=== PATIENT | female | born 2000 | race Caucasian/White ===

== ENCOUNTER 2023-09-10 12:40 | Emergency (ER) | payer MEDICAID ==
[~2023-09-10] VITALS: Ht 167.6 cm; Wt 79.4 kg
[2023-09-10 13:40] LABS: BASOPHILS % (AUTO) 0.5 % (0.0-2.0); EOSINOPHILS % (AUTO) 0.2 % (0.0-6.0); HEMATOCRIT 36 % (33-45); HEMOGLOBIN 12.1 g/dL (11.5-14.8); LYMPHOCYTES # (AUTO) 1.3 K/uL (0.8-4.8); LYMPHOCYTES % (AUTO) 23.3 % (20.0-44.0); MEAN CORPUSCULAR HEMOGLOBIN 28 PG (26.0-33.0); MEAN CORPUSCULAR HGB CONC 33 g/dl (31.0-36.0); MEAN CORPUSCULAR VOLUME 83 fL (82-100); MONOCYTES # (AUTO) 0.3 K/uL (0.1-1.30); MONOCYTES % (AUTO) 5.2 % (2.0-12.0); NEUTROPHILS # (AUTO) 4.1 K/uL (1.8-8.9); NEUTROPHILS % (AUTO) 70.8 % (43.0-81.0); PLATELET COUNT (AUTO) 353 K/uL (150-450); RED BLOOD CELL COUNT(AUTO) 4.37 MIL/uL (4.0-5.2); RED CELL DISTRIBUTION WIDTH 14.6 % (11.5-15.0); WHITE BLOOD COUNT (AUTO) 5.8 K/uL (4.3-11.0)
[2023-09-10 13:48] LABS: PREGNANCY TEST URINE QUAL NEGATIVE (NEGATIVE)
[2023-09-10 13:48] LABS: CALCIUM, SERUM 8.7 mg/dL (8.5-10.1); CARBON DIOXIDE 23 mmol/L (21-32); CHLORIDE 107 mmol/L (98-107); CREATININE 0.6 mg/dL (0.6-1.3); GLUCOSE 99 mg/dL (74-106); POTASSIUM 3.7 mmol/L (3.5-5.1); SODIUM SERUM 137 mmol/L (136-145); UREA NITROGEN, BLOOD 7 mg/dL (7-18)
[2023-09-10 13:54] LABS: ALANINE AMINOTRANSFERASE 48 U/L (12-78); ALBUMIN 3.3 g/dL (3.4-5.0); ALCOHOL, BLOOD < 3 mg/dL (0-10); ALKALINE PHOSPHATASE 77 U/L (46-116); ASPARTATE AMINOTRANSFERASE 27 U/L (15-37); BILIRUBIN,DIRECT 0.1 mg/dL (0.0-0.2); BILIRUBIN,TOTAL 0.3 mg/dL (0.2-1.0); TOTAL PROTEIN, SERUM 7.4 g/dL (6.4-8.2)
[2023-09-10 13:55] LABS: AMPHETAMINE, URINE NEGATIVE (NEGATIVE); BARBITURATE, URINE NEGATIVE (NEGATIVE); BENZODIAZEPINE, URINE NEGATIVE (NEGATIVE); CANNABINOID, URINE NEGATIVE (NEGATIVE); COCCAINE, URINE NEGATIVE (NEGATIVE); OPIATE, URINE NEGATIVE (NEGATIVE); PHENCYCLIDINE SCREEN,URINE NEGATIVE (NEGATIVE)
[2023-09-10] MEDS: IV NS 0.9% 1,000 ML BAG IV ONE (14:25)
[2023-09-10] MEDS: LEVETIRACETAM (500MG) 1,000 MG in IV NS 0.9% 90 ML IV SCH (14:46)
[2023-09-10] MEDS ORDERED: LEVE500T9 PO (14:56)
[2023-09-10 15:43] VITALS: BP 131/74; TEMP 98; O2SAT 100
== END 2023-09-10 15:45 | disposition home or self-care (01) ==
LOC: ER 12:47
DX: G40.909 Epilepsy, unspecified, not intractable, without status epilepticus (principal); R55 Syncope and collapse; M25.569 Pain in unspecified knee; Z85.3 Personal history of malignant neoplasm of breast; Z88.6 Allergy status to analgesic agent
CPT/HCPCS: 99285; 96365; 93005; 70450; 85025; 80048; 80076; 84703; 36415; 80320; 80307; J7030 ×2; J1953; G0480